=== PATIENT | male | born 1985 | race Two or more races ===

== ENCOUNTER 2018-09-17 12:59 | Outpatient (CLI) | payer OTHER | END 2018-09-17 14:44 | disposition home or self-care (01) | LOC: RAD 12:59 | DX: M54.5 Low back pain (principal); I10 Essential (primary) hypertension; Z01.810 Encounter for preprocedural cardiovascular examination; E03.8 Other specified hypothyroidism; E78.89 Other lipoprotein metabolism disorders; E55.9 Vitamin D deficiency, unspecified; Z11.3 Encounter for screening for infections with a predominantly sexual mode of transmission; N41.0 Acute prostatitis; Z11.4 Encounter for screening for human immunodeficiency virus [HIV]; Z11.51 Encounter for screening for human papillomavirus (HPV); Z12.11 Encounter for screening for malignant neoplasm of colon ==